=== PATIENT | male | born 1985 | race Hispanic/Latino ===

== ENCOUNTER 2025-04-13 10:32 | Emergency (ER) | payer OTHER ==
[~2025-04-13] VITALS: Ht 162.6 cm; Wt 63.5 kg
[2025-04-13] MEDS: 0.9%NACL 1000ML 1,000 ML IV ONE (11:03)
--- NOTE | 2025-04-13 11:06 | ERN ---
ED Note History of Present Illness Stated Complaint: ABDOMINAL PAIN Chief Complaint: Abdominal Pain Time Seen by MD: 10:34 Time Seen by Midlevel: 10:34 Dictation: The Patient is a 39-year-old male with no significant past medical history who presents to the emergency department with complaints of right upper abdominal pain that radiates to the back onset three weeks ago. Patient denies any nausea, vomiting, fevers, diarrhea. Patient reports that he went to [place] and they told him he had a viral infection. Allergies: Coded Allergies: No Known Drug Allergies (Unverified Allergy, Unknown, 04/13/25) Past Medical History Past Medical History: No Pertinent History Surgical History: None RN Note Reviewed/Agreed w/PFSH: Yes Review of System Dictation Constitutional: Negative for fever,chills, and weight loss Eyes: Negative for injury, pain,redness, and discharge ENT: Negative for injury,pain or swelling Cardiovascular: Negative for chest pain, palpitations, and edema Respiratory: Negative for shortness of breath, cough, and wheezing, Abdomen/GI: Negative for diarrhea, nausea, vomiting and constipation positive for abdominal pain Back: Negative for injury and pain : Negative for injury, bleeding and discharge MS/Extremity: Negative for injury and deformity Skin: Negative for rash, and discoloration Neuro: Negative for headache, weakness, numbness, tingling, and seizure Psych: Negative for suicide ideation, homicidal ideation, and hallucinations Initial Vital Sign VS Vital Signs Date Time Temp Pulse Resp B/P (MAP) Pulse Ox O2 Delivery O2 Flow Rate FiO2 04/13/25 10:33 98.2 59 16 115/68 98 Room Air 04/13/25 11:14 0 21 Physical Exam Dictation Vital Signs reviewed General Appearance: Alert, oriented x 3, no acute distress, well developed, nourished. Head and Face: non-traumatic. Eyes: PERRL, pink conjunctivas, eyelid no trauma, anterior chamber with arcus senilis. Ears: Pinnas intact and no signs of trauma or erythema ear canals clear and no discharge TM no erythema Nose: No discharge, no bleeding. Oropharynx: Mouth normal, tongue pink. pharynx clear,no erythema, tonsils no exudates, no abscesses noted, mucous membrane moist Neck: Supple, non-tender, no thyromegaly, no masses, no JVD, no bruits Breast:Deferred Chest:No tenderness, no crepitus, no paradoxical movement, no retractions Lungs:Clear, well-ventilated, symmetric, no rales, no wheezing, no rhonchi, no stridor, good breath sounds bilaterally Heart: Regular rate, regular rhythm, no murmur, no gallops Vascular: no peripheral edema, Abdomen: Soft, positive bowel sounds, nondistended, no guarding, nontender, no rebound, no masses no hepatomegaly, no splenomegaly, no Mccurdy's sign, no hernias. Rectal: Deferred Genital: Deferred Neurological: Normal speech, motor function intact, sensory function intact Musculoskeletal: Neck nontender, full range of motion, back nontender, full range of motion, Extremities: nontender, full range of motion Skin: Color pink, dry, no turgor, no rash, no lacerations, no abrasions, no contusions. Lymphatic: Deferred Results (Laboratory/Radiology) Laboratory/Radiology Laboratory Tests Test 04/13/25 10:55 04/13/25 11:01 Urine Color LIGHT-YELLOW (YELLOW) Urine Appearance CLEAR (CLEAR) Urine pH 7.0 (5.0-8.0) Urine Specific [place] 1.023 (1.001-1.031) Urine Protein NEGATIVE mg/dL (NEGATIVE) Urine Glucose (UA) NEGATIVE mg/dL (NEGATIVE) Urine Ketones NEGATIVE mg/dL (NEGATIVE) Urine Occult Blood NEGATIVE (NEGATIVE) Urine Nitrate NEGATIVE (NEGATIVE) Urine Bilirubin NEGATIVE mg/dL (NEGATIVE) Urine Urobilinogen 0.2 mg/dL (0.2-1.0) Urine Leukocyte Esterase NEGATIVE Sahra/uL White Blood Count 4.4 K/uL (4.8-10.8) L Red Blood Count 5.14 MIL/uL (4.50-6.20) Hemoglobin 14.6 g/dL (14.0-18.0) Hematocrit 43.1 % (42-54) Mean Corpuscular Volume 83.9 fL (79-99) Mean Corpuscular Hemoglobin 28.4 pg (27.0-33.0) Mean Corpuscular Hemoglobin Concent 33.9 g/dL (32.0-36.0) Red Cell Distribution Width 12.4 % (11.0-15.5) Platelet Count 186 K/uL (130-400) Mean Platelet Volume 10.5 fL (7.5-10.5) Immature Granulocyte % (Auto) 0.2 % (0-1) Neutrophils (%) (Auto) 49.6 % (40.0-77.0) Lymphocytes (%) (Auto) 40.1 % (21.0-51.0) Monocytes (%) (Auto) 7.8 % (3.0-13.0) Eosinophils (%) (Auto) 2.1 % (0.0-8.0) Basophils (%) (Auto) 0.2 % (0.0-5.0) Neutrophils # (Auto) 2.2 K/uL (1.8-7.7) Lymphocytes # (Auto) 1.8 K/uL (1.0-4.8) Monocytes # (Auto) 0.3 K/uL (0.1-1.0) Eosinophils # (Auto) 0.09 K/uL (0.00-0.70) Basophils # (Auto) 0.01 K/uL (0.00-0.20) Absolute Immature Granulocyte (auto 0.01 K/uL (0-1) Nucleated Red Blood Cells 0.0 % (0.0-0.19) Sodium Level 139 mmol/L (136-145) Potassium Level 3.9 mmol/L (3.5-5.1) Chloride Level 102 mmol/L (101-111) Carbon Dioxide Level 31 mmol/L (21-32) Blood Urea Nitrogen 14 mg/dL (7-18) Creatinine 1.1 mg/dL (0.5-1.3) Glomerular Filtration Rate Calc 88 mL/min (>90) Random Glucose 91 mg/dL (70-105) Total Calcium 9.0 mg/dL (8.5-10.1) Total Bilirubin 0.7 mg/dL (0.2-1.0) Direct Bilirubin 0.1 mg/dL (0.0-0.3) Aspartate Amino Transf (AST/SGOT) 24 U/L (10-37) Alanine Aminotransferase (ALT/SGPT) 29 U/L (12-78) Alkaline Phosphatase 78 U/L (50-136) Total Protein 7.5 g/dL (6.0-8.3) Albumin 4.1 g/dL (3.5-5.0) Lipase 24 U/L (16-77) Labs Reviewed?: Yes ED Course ED Course Orders Procedure Category Date Status Time Cbc With Differential LAB 04/13/25 Complete 10:51 Us Abdominal Ruq\Ltd US 04/13/25 Resulted 10:51 0.9%Nacl 1000ml (Ns PHA 04/13/25 Complete 1000ml) 11:00 Morphine 4mg Syg PHA 04/13/25 Complete (Morphine 4mg Syg) 11:00 Ondansetron 4mg Inj PHA 04/13/25 Complete (Zofran 4mg Inj) 11:00 Pantoprazole 40mg Inj PHA 04/13/25 Complete (Protonix 40mg Inj 11:00 Lipase LAB 04/13/25 Complete 10:51 Basic Metabolic Panel LAB 04/13/25 Complete 10:51 Hepatic Function Panel LAB 04/13/25 Complete 10:51 Urinalysis Profile LAB 04/13/25 Complete 10:51 Current Medications Medications (Trade) Dose Ordered Sig/Carmita Route PRN Reason Start Time Stop Time Status Last Admin Dose Admin Morphine Sulfate (morPHINE 4MG SYG) 4 mg ONCE ONCE IVP 04/13/25 11:00 04/13/25 11:01 DC 04/13/25 11:03 Ondansetron HCl (zoFRAN 4MG INJ) 4 mg ONCE ONCE IVP 04/13/25 11:00 04/13/25 11:01 DC 04/13/25 11:03 Pantoprazole Sodium (PROTonix 40MG INJ) 40 mg ONCE ONCE IVP 04/13/25 11:00 04/13/25 11:01 DC 04/13/25 11:03 Sodium Chloride 1,000 ml @ 0 mls/hr ONCE ONCE IV 04/13/25 11:00 04/13/25 11:01 DC 04/13/25 11:03 Vital Signs Date Time Temp Pulse Resp B/P (MAP) Pulse Ox O2 Delivery O2 Flow Rate FiO2 04/13/25 11:14 98.2 60 16 105/65 98 Room Air* 0 21 04/13/25 10:33 98.2 59 16 115/68 98 Room Air Medical Decision Making MDM The Patient is a 39-year-old male with no significant past medical history who presents to the emergency department with complaints of right upper abdominal pain that radiates to the back onset three weeks ago. Patient denies any nausea, vomiting, fevers, diarrhea. Reports he went to [place] yesterday and they told him he had a viral infection CBC showed mild leukopenia, no anemia, chemistry showed no electrolyte imbalance, normal renal function, negative lipase, normal liver enzymes, urinalysis unremarkable, right upper quadrant ultrasound was unremarkable. On physical exam patient is in no acute distress, nontoxic appearance, nontender abdomen to palpation. Patient will be discharged to follow up with PCP. Differential diagnosis: Gastritis, cholelithiasis, cholecystitis, electrolyte imbalance Need for hospitalization: Patient does not meet criteria for hospitalization. There are no social concerns with this patient. DX & DISP Disposition: Discharge Departure Impression: Primary Impression: Abdominal pain Condition: Stable Scripts Pantoprazole Sodium (Pantoprazole Sodium) 20 Mg Tablet.dr 1 TAB PO DAILY for 30 Days, #30 TAB 0 Refills Prov: LEXY GUTIERREZ 04/13/25 Additional Instructions: Your labs and ultrasound were unremarkable. Please follow up with your primary doctor in 1-2 days. Avoid any foods that exacerbate your symptoms. If anything worsens please return to ER. FOLLOW-UP WITH PRIMARY CARE PROVIDER IN 1 TO 2 DAYS. TAKE MEDICATIONS DIRECTED HERE IN THE EMERGENCY ROOM. OKAY TO CONTINUE HOME MEDICATIONS UNLESS OTHERWISE DISCUSSED DURING YOUR VISIT IN THE EMERGENCY ROOM TODAY. RETURN TO YOUR NEAREST EMERGENCY ROOM IF SYMPTOMS WORSEN OR IF THERE IS NO IMPROVEMENT. CALL 911 IF YOU NEED IMMEDIATE ASSISTANCE. TAKE TYLENOL [id number] NEEDED AND IF NO CONTRAINDICATIONS ARE PRESENT. INCREASE ORAL HYDRATION. A WOUND CULTURE OR URINE CULTURE WAS ORDERED HERE IN THE EMERGENCY ROOM DEPARTMENT PLEASE FOLLOW-UP WITH PRIMARY CARE PROVIDER AND ADVISE THEM TO GET REPEAT PORTS FROM OUR FACILITY. IF YOU HAD ANY ROYER WRAP/SPLINTS THAT WERE APPLIED HERE, PLEASE DO NOT REMOVE THEM UNTIL YOU SEE YOUR PRIMARY CARE OR SPECIALTY. Referrals: SELF,REFERRAL (PCP) Time of Disposition: 12:32 I have reviewed the case, and I agree with, Diagnosis and Plan LEXY GUTIERREZ Apr 13, 2025 11:06
[2025-04-13 11:10] LABS: IMMATURE GRANULOCYTE ABSOLUTE 0.01 K/uL (0-1); NUCLEATED RED BLOOD CELLS 0.0 % (0.0-0.19); PLATELET COUNT (AUTO) 186 K/uL (130-400); RED BLOOD CELL COUNT(AUTO) 5.14 MIL/uL (4.50-6.20); RED CELL DISTRIBUTION WIDTH 12.4 % (11.0-15.5); WHITE BLOOD COUNT (AUTO) 4.4 K/uL (4.8-10.8)
[2025-04-13 11:11] LABS: APPEARANCE,URINE CLEAR (CLEAR); GLUCOSE, URINE (UA) NEGATIVE (NEGATIVE); LEUKOCYTE ESTERASE ,URINE NEGATIVE Leu/uL (NEGATIVE); NITRATE,URINE NEGATIVE (NEGATIVE); OCCULT BLOOD,URINE NEGATIVE (NEGATIVE)
[2025-04-13 11:16] LABS: ADD UA MICROSCOPIC NO
[2025-04-13 11:44] LABS: ASPARTATE AMINOTRANSFERASE 24.0 U/L (10-37); CREATININE 1.1 mg/dL (0.5-1.3); GLOMERULAR FILTR. RATE CALC 88.0 mL/min (>90); GLUCOSE,RANDOM 91.0 mg/dL (70-105); SODIUM SERUM 139.0 mmol/L (136-145); TOTAL PROTEIN, SERUM 7.5 g/dL (6.0-8.3); UREA NITROGEN, BLOOD 14.0 mg/dL (7-18)
--- NOTE | 2025-04-13 11:50 | HMCIMG ---
US ABDOMINAL RUQ\E\LTD HISTORY: Adominal Pain COMPARISON: None FINDINGS: There is normal sonographic appearance of the liver. The liver length is 16.0 cm. There are no focal liver masses. The liver is not enlarged.There is a normal-appearing gallbladder. The gallbladder wall thickness is 0.1 cm. Common duct is normal. The common bile duct measures 0.4 cm. Right kidney is normal with no evidence of mass, hydronephrosis or stone.Right kidney measures 8.8 x 3.6 x 4.8 cm. IMPRESSION: 1. Normal right upper quadrant sonogram.
[2025-04-13] MEDS ORDERED: PANT20TA18 PO (12:32)
[2025-04-13 12:37] VITALS: BP 114/62; PULSE 65; RESP 16; TEMP 98.2; O2SAT 98
== END 2025-04-13 12:49 | disposition home or self-care (01) ==
LOC: EDH 10:32
DX: R10.11 Right upper quadrant pain (principal)
CPT/HCPCS: 99285; 96374; 76705; 96361; 96375; 80076; 80048; 83690; 85025; 81003; 36415; J7030; J2405; J2270; J2470